=== PATIENT | female | born 1960 | race Caucasian/White ===

== ENCOUNTER 2018-04-02 13:59 | Emergency (ER) | payer BC ==
[2018-04-02 14:19] VITALS: BP 134/80
--- NOTE | 2018-04-02 14:29 | UC ---
Complaint Female HPI - HPI Summary HPI Summary: Patient has had urinary burning and frequency for the past 3 days. has taken azo without relief - History Of Current Complaint Chief Complaint: UCGU Stated Complaint: URINARY Time Seen by Provider: 04/02/18 14:24 Hx Obtained From: Patient ?: No Onset/Duration: Sudden Onset, Lasting Days Timing: Intermittent Severity Initially: Mild Severity Currently: None Pain Intensity: 0 Aggravating Factor(s): Urination - Allergies/Home Medications Allergies/Adverse Reactions: Allergies Allergy/AdvReac Type Severity Reaction Status Date / Time No Known Allergies Allergy Verified 04/02/18 14:19 PMH/Surg Hx/FS Hx/Imm Hx Previously Healthy: Yes - Surgical History Surgical History: Yes Surgery Procedure, Year, and Place: 2 YRS OF AGE TONSILLECTOMY- [facility]. 1984 RIGHT BUNIONECTOMY- [facility]. 07/16/15 GASTRIC BYPASS, HERNIA REPAIR - Family History Known Family History: Positive: Hypertension - Social History Alcohol Use: None Substance Use Type: None Smoking Status (MU): Former Smoker Type: Cigarettes Amount Used/How Often: 1 1/2 PPD FOR 35 YRS Length of Time of Smoking/Using Tobacco: 35 YRS Have You Smoked in the Last Year: No When Did the Patient Quit Smoking/Using Tobacco: 2006 - Immunization History Most Recent Influenza Vaccination: 2013 Most Recent Tetanus Shot: UTD Most Recent Pneumonia Vaccination: NONE Physical Exam Vital Signs: Initial Vital Signs Temp 97.9 F 04/02/18 14:16 Pulse 80 04/02/18 14:16 Resp 16 04/02/18 14:16 BP 134/80 04/02/18 14:16 Pulse Ox 100 04/02/18 14:16 Complaint Female Dx - Course Course Of Treatment: hx obtained, exam performed ,meds reviewed, UA pos, treated - Differential Dx/Diagnosis Differential Diagnosis/HQI/PQRI: Ureteral Stone, Urinary Tract Infection Provider Diagnoses: UTI Discharge - Sign-Out/Discharge Documenting (check all that apply): Discharge/Admit/Transfer - Discharge Plan Condition: Stable Disposition: HOME Prescriptions: Cephalexin CAP* [Keflex CAP*] 500 mg PO BID #[id number] Referrals: Jessica Santana MD [Primary Care Provider] - Additional Instructions: 1. Increase fluid intake 2. Take medication as prescribed. 3. Follow up if symtpoms are not improving. 4. Culture was sent and we will notify you if treatment needs to be altered. - Billing Disposition and Condition Condition: STABLE Disposition: HOME
== END 2018-04-02 14:39 | disposition home or self-care (01) ==
LOC: UCCORT 13:59
DX: N39.0 Urinary tract infection, site not specified (principal); Z98.84 Bariatric surgery status; Z82.49 Family history of ischemic heart disease and other diseases of the circulatory system; Z87.891 Personal history of nicotine dependence
CPT/HCPCS: 81003; 87077; 87086; 87186; 99212; G0463